=== PATIENT | male | born 1955 | race Caucasian/White ===

== ENCOUNTER 2018-06-03 16:02 | Emergency (ER) | payer BC, OTHER ==
[2018-06-03 16:32] VITALS: BP 136/69
--- NOTE | 2018-06-03 16:35 | EDM.PDOC ---
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 Pt reports he accidentally cut the backside of his hand on the thumb side while grinding. 10cm superficial linear laceration. Pt reports last tetanus was 3 years ago. Pt denies any functional deficit. Wound is neurovascularly intact. Onset: Today Onset Date: 06/03/18 Location: Reports: Upper Extremity, Left Quality: Reports: Ache Severity: Mild Improves with: Reports: None Worsens with: Reports: None Associated Symptoms: Reports: No Other Symptoms - Related Data Allergies Allergy/AdvReac Type Severity Reaction Status Date / Time No Known Drug Allergies Allergy Cannot Verified 06/03/18 16:34 Remember Home Meds: Home Meds . [No Known Home Meds] 06/03/18 [History] Past Medical History - Past Health History Medical/Surgical History: Denies Medical/Surgical History ED ROS GENERAL - Review of Systems Review Of Systems: See Below Constitutional: Reports: No Symptoms HEENT: Reports: No Symptoms Respiratory: Reports: No Symptoms Cardiovascular: Reports: No Symptoms Endocrine: Reports: No Symptoms GI/Abdominal: Reports: No Symptoms : Reports: No Symptoms Musculoskeletal: Reports: No Symptoms Skin: Reports: Wound (10cm laceration to left hand) Neurological: Reports: No Symptoms Psychiatric: Reports: No Symptoms Hematologic/Lymphatic: Reports: No Symptoms Immunologic: Reports: No Symptoms ED EXAM, SKIN/RASH Exam: See Below Exam Limited By: No Limitations General Appearance: Alert, WD/WN, No Apparent Distress Head: Atraumatic, Normocephalic Neck: Normal Inspection, Supple, Non-Tender, Full Range of Motion Respiratory/Chest: No Respiratory Distress, Lungs Clear, Normal Breath Sounds, No Accessory Muscle Use, Chest Non-Tender Cardiovascular: Normal Peripheral Pulses, Regular Rate, Rhythm, No Edema, No Gallop, No JVD, No Murmur, No Rub GI/Abdominal: Normal Bowel Sounds, Soft, Non-Tender, No Organomegaly, No Distention, No Abnormal Bruit, No Mass Back Exam: Normal Inspection, Full Range of Motion, NT Neurological: Alert, Oriented, CN II-XII Intact, Normal Cognition, Normal Gait, Normal Reflexes, No Motor/Sensory Deficits Psychiatric: Normal Affect, Normal Mood Skin: Wound/Incision (10cm laceration to left hand) Location, Skin: Upper Extremity, Left Lymphatic: No Adenopathy ED SKIN PROCEDURES - Laceration/Wound Repair Left Posterior Hand Lac/Wound length In cm: 10 Appearance: Superficial Distal NVT: Neuro & Vascular Intact Anesthetic Type: Local Local Anesthesia - Lidocaine (Xylocaine): 1% Plain Local Anesthetic Volume: Other (10) Skin Prep: Providone-Iodine (Betadine), Saline Exploration/Debridement/Repair: Wound Explored Closed with: Sutures Suture Size: 4-0 # of Sutures: 10 Suture Type: Nylon Sterile Dressing Applied: Provider Tetanus Status Addressed: Yes Complications: No Course - Orders/Labs/Meds Orders: Active Orders 24 hr Category Date Time Status Hand 2V Lt [CR] Stat Exams 06/03/18 16:22 Ordered - Radiology Interpretation Free Text/Narrative:: left hand xray- NAD Departure - Departure Time of Disposition: 17:04 Disposition: Home, Self-Care 01 Condition: Good Clinical Impression: Laceration of left hand Qualifiers: Foreign body presence: without foreign body - Discharge Information Instructions: Laceration Care, Adult, [id number], Sutured Wound Care Referrals: PCP,None [Primary Care Provider] - Additional Instructions: 1. discharge home 2. wound care instruction given 3. keep clean and dry 4. return to ER for signs of infection 5. follow up in clinic for suture removal next 10-14 days - My Orders Last 24 Hours: My Active Orders 06/03/18 16:22 Hand 2V Lt [CR] Stat - Assessment/Plan Last 24 Hours: My Active Orders 06/03/18 16:22 Hand 2V Lt [CR] Stat Assessment:: 1. 10cm laceration to posterior aspect of left hand Plan: 1. discharge home 2. wound care instruction given 3. keep clean and dry 4. return to ER for signs of infection 5. follow up in clinic for suture removal next 10-14 days
--- NOTE | 2018-06-03 16:47 | CR ---
[id number] RAD/RAD Hand Left 2V EXAM: RAD Hand Left 2V CLINICAL DATA: TRAUMA COMPARISON: CORRELATION IS MADE WITH THE EXAM OF AUGUST 27, 2014. FINDINGS: Soft tissue injury with foreign bodies is identified along the lateral aspect of the left first metacarpal. No definite underlying bony involvement is seen. IMPRESSION: SOFT TISSUE INJURY WITH TINY RADIOPAQUE FOREIGN BODIES. Guillaume Jamison MD 06/03/18 [id number] Thank you for allowing us to participate in the care of your patient.
[2018-06-03] MEDS: EPINEPHrine 1:10,000 1 MG/10 ML Syringe ONE (16:48)
[2018-06-03] MEDS: Lidocaine 1% 20 ML MDV INJECT ONE (16:50)
[2018-06-03] MEDS: Lidocaine 1% 20 ML MDV ONE (17:22)
== END 2018-06-03 17:10 | disposition home or self-care (01) ==
LOC: KA.ED 16:02
DX: S61.412A Laceration without foreign body of left hand, initial encounter (principal); W31.89XA Contact with other specified machinery, initial encounter
CPT/HCPCS: 12004; 73120-LT; 99283